=== PATIENT | female | born 1985 | race Caucasian/White ===

== ENCOUNTER 2017-09-19 21:32 | Inpatient (IN) | payer MEDICAID ==
[2017-09-19] MEDS ORDERED: LACTATED RINGER'S 1,000 ML IV (22:40)
[2017-09-19] MEDS ORDERED: BUTORPHANOL 2 MG INJ IV (23:00)
[2017-09-19] MEDS ORDERED: LIDOCAINE 1% (MPF) 30 ML INJ INJ (23:00)
[2017-09-19] MEDS ORDERED: MISOPROSTOL 200 MCG TAB PR (23:00)
[2017-09-19] MEDS ORDERED: CARBOPROST 250 MCG INJ IM (23:00)
[2017-09-19] MEDS ORDERED: MINERAL OIL LIGHT 10 ML VIAL TOP (23:00)
[2017-09-19] MEDS ORDERED: METHYLERGONOVINE 0.2 MG INJ IM (23:00)
[2017-09-19] MEDS ORDERED: OXYTOCIN 30 UNITS/LR 500 ML IV (23:00)
[2017-09-19] MEDS: LACTATED RINGER'S 1,000 ML IV (23:22)
[2017-09-20] MEDS: AMPICILLIN 2 GM/NS (PMX) 100 ML IV (00:18)
[2017-09-20 00:35] LABS: ADD MAN DIFF? NO
[2017-09-20 00:42] LABS: WHITE BLOOD COUNT 8.8 10^3/ul (4.8-10.8)
[2017-09-20 00:42] LABS: BASOPHILS % 0.1 % (0.0-2.0); EOSINOPHILS # 0.1 10^3/ul (0.0-0.5); EOSINOPHILS % 0.9 % (0.0-7.0); HEMATOCRIT 36.6 % (37.0-47.0); HEMOGLOBIN 12.5 g/dl (12.0-16.0); LYMPHOCYTES # 1.5 10^3/ul (0.8-2.9); LYMPHOCYTES % 16.7 % (15.0-51.0); MEAN CORPUSCULAR HEMOGLOBIN 31.3 pg (29.0-33.0); MEAN CORPUSCULAR HGB CONC 34.2 g/dl (32.0-37.0); MEAN CORPUSCULAR VOLUME 91.5 fl (82.0-101.0); MEAN PLATELET VOLUME 11.5 fl (7.4-10.4); MONOCYTE # 0.5 10^3/ul (0.3-0.9); MONOCYTES % 5.9 % (0.0-11.0); NEUTROPHIL # 6.6 10^3/ul (1.6-7.5); NEUTROPHILS % 75.5 % (39.0-77.0); PLATELET COUNT 167 10^3/UL (140-415); RED CELL DISTRIBUTION WIDTH 13.8 % (11.5-14.5)
[2017-09-20 00:58] LABS: INR 0.84; PROTIME 11.6 Sec (11.9-14.9); PT RATIO 0.9
[2017-09-20 00:59] LABS: PARTIAL THROMBOPLASTIN TIME 28.1 Sec (25.0-35.0)
[2017-09-20 01:27] LABS: HEPATITIS B SURFACE ANTIGEN NEGATIVE (NEGATIVE)
[2017-09-20] MEDS: AMPICILLIN 1 GM/NS (PMX) 50 ML IV (03:55)
[2017-09-20] MEDS: OXYTOCIN 30 UNITS/LR 500 ML IV ×3 (05:28→10:57)
[2017-09-20] MEDS: IBUPROFEN 600 MG TAB PO ×4 (05:37→23:33)
[2017-09-20] MEDS ORDERED: OXYCODONE/ASPIRIN (4.88/325) TAB PO ×2 (09:00)
[2017-09-20] MEDS ORDERED: ONDANSETRON 4 MG INJ IV (09:00)
[2017-09-20] MEDS ORDERED: ACETAMINOPHEN 325 MG TAB PO (09:00)
[2017-09-20] MEDS ORDERED: HYDROCODONE/APAP (5/325) TAB PO ×2 (09:00)
[2017-09-20] MEDS ORDERED: DIBUCAINE 1% 30 GM OINT PR (09:00)
[2017-09-20] MEDS: WITCH HAZEL/GLYCERIN PAD PR (10:54)
[2017-09-20] MEDS: LANOLIN 7 GM TUBE TOP (10:54)
[2017-09-20] MEDS: BENZOCAINE 20% 56 ML SPRAY TOP (10:54)
[2017-09-20] MEDS: SENNA/DOCUSATE NA (8.6MG/50MG) TAB PO ×2 (10:55→21:29)
[2017-09-20 14:59] LABS: RAPID PLASMA REAGIN NONREACTIVE (NR)
[2017-09-21] MEDS: IBUPROFEN 600 MG TAB PO ×4 (05:41→23:56)
[2017-09-21] MEDS: SENNA/DOCUSATE NA (8.6MG/50MG) TAB PO ×2 (09:58→21:23)
[2017-09-21 10:19] LABS: ADD MAN DIFF? NO
[2017-09-21 10:30] LABS: BASOPHILS % 0.4 % (0.0-2.0); EOSINOPHILS # 0.1 10^3/ul (0.0-0.5); EOSINOPHILS % 1.4 % (0.0-7.0); HEMATOCRIT 32.4 % (37.0-47.0); HEMOGLOBIN 10.8 g/dl (12.0-16.0); LYMPHOCYTES # 1.5 10^3/ul (0.8-2.9); LYMPHOCYTES % 20.7 % (15.0-51.0); MEAN CORPUSCULAR HEMOGLOBIN 31.1 pg (29.0-33.0); MEAN CORPUSCULAR HGB CONC 33.3 g/dl (32.0-37.0); MEAN CORPUSCULAR VOLUME 93.4 fl (82.0-101.0); MEAN PLATELET VOLUME 11.4 fl (7.4-10.4); MONOCYTE # 0.4 10^3/ul (0.3-0.9); NEUTROPHILS % 71.6 % (39.0-77.0); PLATELET COUNT 158 10^3/UL (140-415); RED BLOOD COUNT 3.47 10^6/ul (4.20-5.40); RED CELL DISTRIBUTION WIDTH 13.9 % (11.5-14.5)
[2017-09-22] MEDS: IBUPROFEN 600 MG TAB PO ×2 (05:37→11:36)
[2017-09-22] MEDS: SENNA/DOCUSATE NA (8.6MG/50MG) TAB PO (08:47)
[2017-09-22] MEDS: MEASLES,MUMPS,RUBELLA VACCINE INJ SC* (09:00)
== END 2017-09-22 14:20 | disposition home or self-care (01) | DRG 775 ==
LOC: OBT 21:32 → PP1 09-20 08:44 → L-D 21:34 → OBT 22:38 → L-D 22:38
PROVIDERS: Obstetrics & Gynecology
PROC: 10E0XZZ Delivery of Products of Conception, External Approach (ICD-10-PCS; principal; 2017-09-20)
PROC: 3E033VJ Introduction of Other Hormone into Peripheral Vein, Percutaneous Approach (ICD-10-PCS; 2017-09-20)
DX: O69.81X0 Labor and delivery complicated by cord around neck, without compression, not applicable or unspecified (principal); Z3A.38 38 weeks gestation of pregnancy; Z37.0 Single live birth
CPT/HCPCS: 76815; 85025; 85610; 85730; 86592; 86850; 86900; 86901; 87340